=== PATIENT | male | born 1985 | race Caucasian/White ===

== ENCOUNTER 2022-04-16 21:37 | Emergency (ER) | payer OTHER, SELFPAY ==
[2022-04-16 22:24] VITALS: BP 110/70; PULSE 81; RESP 18; TEMP 37.4; O2SAT 99; BMI 21.4
[2022-04-16 22:44] LABS: PLT CLUMP 1
[2022-04-16 22:46] LABS: Hematocrit 36.9 % (42.0-52.0); Hemoglobin 13.1 g/dl (14.0-18.0); Mean Corpuscular HGB Conc 35.5 g/dl (31.0-36.0); Mean Corpuscular Volume 84.6 fL (80.0-98.0); Red Blood Count 4.36 X10*6/uL (4.60-5.80); Red Cell Distribution Width 12.3 % (11.0-16.0)
[2022-04-16 23:01] LABS: Platelet Count 118 X10*3/uL (160-400); White Blood Count 4.1 X10*3/uL (4.8-10.8)
[2022-04-16 23:03] LABS: Alanine Aminotransferase 28 U/L (0-40); Albumin Level 3.6 g/dL (3.5-5.0); Alkaline Phosphatase 54 U/L (39-117); Anion Gap 16 (12-20); Aspartate Amino Transferase 47 U/L (5-37); Bilirubin Total 0.3 mg/dL (0.0-1.0); Blood Urea Nitrogen 14 mg/dL (9-16); Calcium 8.5 mg/dL (8.4-10.2); Carbon Dioxide 23 mmol/L (22-29); Chloride 97 mmol/L (96-108); Estimated Glomerular Filt Rate > 60; Glucose Random 105 mg/dL (60-115); Potassium 3.5 mmol/L (3.3-5.1); Sodium 132 mmol/L (135-145); Total Protein 7.4 g/dL (6.5-8.0)
[2022-04-17 01:07] LABS: Lipase 23 U/L (8-78)
[2022-04-17 02:00] VITALS: BP 121/83; PULSE 79; RESP 16; TEMP 37.1; O2SAT 99
--- NOTE | 2022-04-17 03:58 | ED_ITS ---
HPI - Abdominal Pain General Chief Complaint: Abdominal Pain Stated Complaint: stomach pain Time Seen by Provider: 04/17/22 00:49 Source: patient Mode of arrival: ambulatory Limitations: no limitations History of Present Illness HPI narrative: patient comes to emergency room complaining of nausea, vomiting, diarrhea and abdominal cramping. Patient states that yesterday he went to [facility], he was prescribed loperamide. Patient has been taking it as prescribed, but he still continues having significant amount of watery bowel movements. Patient states that he is no longer vomiting as much, maybe once a day today, but he is constantly nauseous and he has a burning sensation any time that he eats or drinks anything. Patient states that he had a similar episode 2-3 years ago, he was diagnosed with gastritis. Patient denies any chest pain or shortness of breath. Denies fever chills. Related Data Previous Rx's Medication Instructions Recorded diphenoxylate-atropine 2.5 1 tab PO DAILY PRN diarrhea #7 tabs 04/17/22 mg-0.025 mg tablet (Lomotil) omeprazole 40 mg capsule,delayed 40 mg PO DAILY #30 caps 04/17/22 release Allergies Allergy/AdvReac Type Severity Reaction Status Date / Time No Known Allergies Allergy Unverified 04/23/20 19:34 [No Known Allergies*] Review of Systems Review of Systems Constitutional : No Weight loss, No Fever, No Chills, No Night Sweats, No Fatigue, No Malaise ENT/Mouth : No Hearing loss, No Ear Pain, No Nasal Congestion, No Sinus Pain, No Hoarseness, No sore throat, No Rhinorrhea, No Swallowing Difficulty Eyes: No Eye Pain, No Swelling, No Redness, No Foreign Body, No Discharge, No Vision Changes Cardiovascular : No Chest Pain, No SOB, No Dyspnea on Exertion, No Orthopnea, No Edema, No Palpitations Respiratory : No Cough, No Sputum, No Wheezing, No Smoke Exposure, No Dyspnea Gastrointestinal : Complaining of nausea, vomiting, diarrhea, abdominal cramping that improves with bowel movements, No Constipation, no hematochezia or melena Genitourinary : no irregular bleeding, No Dysuria, No Urinary Frequency, No Hematuria, No Urinary Incontinence, No Urgency, No Flank Pain, No Urinary Flow Changes, No Hesitancy Musculoskeletal : No joint pain, No Myalgias, No Joint Swelling Skin : No Skin Lesions, No rash Neuro : No Weakness, No Numbness, No Paresthesias, No Loss of Consciousness, No Dizziness, No Headache Psych : No Anxiety/Panic, No Depression, No SI/HI/AH/VH, No Social Issues, Heme/Lymph: No Bruising, No Bleeding,No Lymphadenopathy Endocrine : No Polyuria, No Polydipsia, No Temperature Intolerance PMFSH Past Medical History Medical History Gastritis Social History Social History Advance Directives: No Advance Directives Information Provided: No Physical Exam ED Vital Signs: Vital Signs - 24 hr 04/16/22 22:24 04/17/22 02:00 Temperature 99.3 F 98.8 F Pulse Rate 81 79 Respiratory Rate 18 16 Blood Pressure 110/70 121/83 Pulse Oximetry 99 99 Oxygen Delivery Method Room Air Room Air BMI result Body Mass Index 21.4 Const Other: Appearance: Alert. Oriented X3. No acute distress. well-appearing Eyes: Pupils equal, round and reactive to light. ENT: Pharynx normal. Neck: Normal inspection. Neck supple. No lymph nodes noted. No crepitus CVS: Normal heart rate and rhythm. Pulses normal. Normal S1 and S2 Respiratory: No respiratory distress. Breath sounds normal. No Wheezing. No rales Abdomen: Soft and nontender. No rigidity. No distention. Skin: Skin warm and dry. Normal skin color. Normal skin turgor. Extremities: No lower extremity edema. No Lacerations. No Rash Neuro: Oriented X 3. No motor deficit. No sensory deficit. Moving all extremities. No slurred speech. CN 2 through 12 grossly intact Psych: calm, cooperative, normal affect Course Course Course Narrative: patient has been taking multiple doses of loperamide without any relief. Here in the emergency room, patient receiving IV fluids, Lomotil, IV Pepcid, Zofran. patient has not had any episodes of vomiting or diarrhea. Patient instructed to follow-up with his primary care physician, patient may need a referral for Gastroenterology for endoscopy if patient keeps having gastritis like symptoms. In the meantime, we will provide him with a prescription with PPIs and Lomotil. Patient requesting to have his ribs printed. Patient states he has no health insurance and he would like to compare prices in several pharmacies MDM - Abdominal Pain Lab Data Result diagrams: 04/16/22 22:40 04/16/22 22:40 Labs: Lab Results 04/16/22 04/16/22 04/17/22 Range/Units 22:40 22:40 04:34 WBC 4.1 L (4.8-10.8) X10*3/uL RBC 4.36 L (4.60-5.80) X10*6/uL Hgb 13.1 L (14.0-18.0) g/dl Hct 36.9 L (42.0-52.0) % MCV 84.6 (80.0-98.0) fL MCH 30.0 (27.0-33.0) pg MCHC 35.5 (31.0-36.0) g/dl RDW 12.3 (11.0-16.0) % Plt Count 118 L (160-400) X10*3/uL MPV 10.0 (9.4-12.4) fL Absolute Nucleated RBC 0.000 (0.0-0.012) X10*3/uL Nucleated RBC % (auto) 0.0 (0.0-0.2) /100WBC Sodium 132 L (135-145) mmol/L Potassium 3.5 (3.3-5.1) mmol/L Chloride 97 (96-108) mmol/L Carbon Dioxide 23 (22-29) mmol/L Anion Gap 16 (12-20) BUN 14 (9-16) mg/dL Creatinine 0.98 (0.5-1.4) mg/dL Estim Creat Clear Calc 96.0 Estimated GFR > 60 Random Glucose 105 (60-115) mg/dL Calcium 8.5 (8.4-10.2) mg/dL Total Bilirubin 0.3 (0.0-1.0) mg/dL AST 47 H (5-37) U/L ALT 28 (0-40) U/L Alkaline Phosphatase 54 (39-117) U/L Total Protein 7.4 (6.5-8.0) g/dL Albumin 3.6 (3.5-5.0) g/dL Lipase 23 (8-78) U/L COVID-19 (SHERICE) Negative (Negative) COVID-19 Clin Com See Note Discharge Plan Discharge Clinical Impression: Nausea vomiting and diarrhea, Gastritis Patient Disposition: Home, Self-Care Instructions: Gastritis (ED), Diet for Stomach Ulcers and Gastritis (ED), Acute Diarrhea (ED) Additional Instructions: please stay well hydrated. Drink fluids with electrolytes such as Pedialyte, Gatorade or Powerade. Please follow-up with your primary care physician tomorrow. If you have any worsening or new symptoms, please return to the emergency room or call 911 Prescriptions: New omeprazole 40 mg capsule,delayed release(DR/EC) 40 mg PO DAILY Qty: 30 2RF diphenoxylate-atropine [Lomotil] 2.5-0.025 mg tablet 1 tab PO DAILY PRN (Reason: diarrhea) Qty: 7 0RF
[2022-04-17] MEDS: ondansetron HCL 4 MG/2 ML VIAL IVPUSH (04:15)
[2022-04-17] MEDS: Famotidine/PF 20 MG/2 ML VIAL IVPUSH (04:15)
[2022-04-17] MEDS: 0.9 % Sodium Chloride 1,000 ML 999 ML IVCONT (04:16)
[2022-04-17] MEDS: Diphenoxylate/Atrop 2.5/0.025 TABLET 2 TAB PO (04:32)
[2022-04-17 04:52] LABS: COVID-19 Test Negative (Negative)
[2022-04-17 05:14] VITALS: BP 119/62; PULSE 79; RESP 14; O2SAT 99
== END 2022-04-17 05:24 | disposition home or self-care (01) ==
PROVIDERS: Emergency Provider Emergency Medicine
DX: K29.70 Gastritis, unspecified, without bleeding (principal); R11.2 Nausea with vomiting, unspecified; R19.7 Diarrhea, unspecified; Z20.822 Contact with and (suspected) exposure to COVID-19; Z79.899 Other long term (current) drug therapy
CPT/HCPCS: 36415; 80053; 83690; 85027; 87635; 96374; 96375; 99284; J2405